=== PATIENT | female | born 1970 | race Caucasian/White ===

== ENCOUNTER 2017-05-20 09:15 | Day surgery (SDC) | payer BC ==
[~2017-05-20] VITALS: Ht 149.9 cm; Wt 50.8 kg
[~2017-05-20 09:15] MED LIST: LEVSIN0.125 MG PO; NORCO 5-325 TA1 EACH PO; PROTONIX40 M1 PO; TRAZODONE HCL50 MG PO; XANAX 0.25 MG0.25 MG PO; ZANTAC 150MG T150 M1 PO; ZOLOFT50 MG PO
[2017-05-20 09:38] VITALS: BP 131/83
[2017-05-20 09:45] LABS: HEMATOCRIT 32.8 % (37.0-47.0); HEMOGLOBIN 10.7 gm/dL (12.0-15.0); MCH 25.7 pg (26.0-34.0); MCHC 32.6 g/dL (28.0-37.0); MCV 78.9 fL (80.0-100.0); MPV 8.2 fl. (7.2-11.1); RBC 4.15 mil/uL (4.20-5.00); RDW-CV 16.4 % (10.5-14.5)
[2017-05-20 09:57] LABS: CALCIUM 8.4 mg/dL (8.5-10.1); CREATININE 0.8 mg/dL (0.6-1.3); POTASSIUM 3.7 mmol/L (3.5-5.1)
[2017-05-20 10:02] LABS: ALBUMIN 3.6 g/dL (3.4-5.0); TOTAL BILIRUBIN 0.4 mg/dL (<0.1-1.0); TOTAL PROTEIN 6.8 g/dL (6.4-8.2)
[2017-05-20 15:01] VITALS: BP 131/83
[2017-05-20 15:03] VITALS: BP 131/83
[2017-05-20 20:00] VITALS: BP 148/85
[2017-05-21 00:43] VITALS: BP 138/64
[2017-05-21 05:28] VITALS: BP 144/87
[2017-05-21] MEDS ORDERED: HYDROCODONE-AP1 EAC6 PO (07:37)
[2017-05-21 07:39] VITALS: BP 144/87
[2017-05-21 08:09] VITALS: BP 147/79
[2017-05-21 09:44] VITALS: BP 144/87
--- NOTE | 2017-05-22 13:32 | S ---
[address] [address] SURGICAL PATH RPT PROCEDURE Name: MOSES PADILLA Room: [facility]#: [id number] Admission: 05/20/17 Date of : 72 Discharge: 05/21/17 Report #: [id number] Path Case #: [id number] PATHOLOGY REPORT COLLECTION DATE: 05/20/2017 RECEIVED DATE: 05/20/2017 SUBMITTING PHYS: Dr. Ivan Durant OTHER PHYS: Dr. Ofelia Moore SPECIMEN(S) RECEIVED: A.Gallbladder and contents * * * * * * * * * * * * FINAL DIAGNOSIS: Gallbladder and contents: - Chronic cholecystitis. (KWAME:mgr; 05/22/2017) PATHOLOGIST: Jw Bello M.D. REPORT ELECTRONICALLY SIGNED BY: Jw Bello M.D. DATE/TIME: 05/22/2017 13:31 * * * * * * * * * * * * GROSS PATHOLOGY: Received in formalin labeled "Moses Padilla, gallbladder and contents," is a 7.1 x 2.2 x 2.4 cm, intact gallbladder with dark green, slightly vascular serosal surfaces. Opening the gallbladder reveals a green, velvety mucosa and an average wall thickness of 0.1 cm. Calculi are not present and no masses are noted grossly. Fibreglass Laminator sections from the body and fundus are submitted along with the proximal margin in cassette A1. (TSD; 05/20/2017) CLINICAL HISTORY: Dysphasia, cholecystitis INITIAL CPT CODE(S): A; 89600 Professional services performed by [facility] at [facility], [address] [place] [address], [place] [address]. Technical services performed by [facility] at [address] [place] [address], [facility] [address], [place] [address]. [facility] [place] [address] [place] [address] SURGICAL PATH RPT PROCEDURE Name: MOSES PADILLA [id number] Admission: 05/20/17 Date of : 72 Discharge: 05/21/17 Report #: [id number] Path Case #: [id number] [address] PHONE: [phone] DIRECTOR: Ganga Diaz M.D. * * * END OF REPORT * * *
--- NOTE | 2017-05-31 12:15 | OP ---
[address] [address] OPERATIVE REPORT Name: VALERIEMOSES L Room: [facility]#: [id number] Admission: 05/20/17 Attend Phys: Ivan Durant DO Discharge: 05/21/17 Date of : 72 Report #: [id number] THIS REPORT FOR: //name// CC: Ivan Moore DICTATED BY: Sonal Sheridan DO DATE OF SERVICE: 05/20/2017 PREOPERATIVE DIAGNOSES: Cholelithiasis and gastroesophageal reflux. POSTOPERATIVE DIAGNOSES: Cholelithiasis and gastroesophageal reflux. SURGEON: Sonal Sheridan DO PGY5. SUPERVISING SURGEON: Ivan Durant DO. COMMERCIAL ACCOUNT EXECUTIVE: Abe Alegria, PGY1. PROCEDURE: Laparoscopic cholecystectomy and aspiration of fluid from lap band. ANESTHESIA: General endotracheal. ESTIMATED BLOOD LOSS: 10 mL. SPECIMENS: Gallbladder. COMPLICATIONS: None. PATIENT CONDITION: Stable. DISPOSITION: To PACU. OPERATIVE DETAILS: After obtaining proper informed consent, the patient was brought to the operating room and laid supine on the operating table. She was given preoperative antibiotics and sedated and intubated under the benefit of general anesthesia. Abdomen was then prepped and draped in the usual sterile fashion, and timeout was performed. Lap band port was accessed with Jhaveri needle and 6.5 mL of fluid was aspirated from lap band. Infraumbilical incision was made, and dissection of subcutaneous tissue was carried out to the level of the fascia. A nicking incision was made in the fascia, and this was grasped with two Macario clamps and elevated. Fascial incision was extended slightly inferiorly and superiorly, and peritoneum was then entered bluntly with a hemostat. Finger was placed in abdomen, and peritoneum was swept and found to be free of adhesions. 0 Vicryl xeyymb-oq-anexo [place] [address] OPERATIVE REPORT Name: MOSES PADILLA [id number] Admission: 05/20/17 Attend Phys: Ivan Durant DO Discharge: 05/21/17 Date of : 72 Report #: [id number] superiorly and inferiorly in the fascia, and Dacia trocar was placed in the abdomen. Abdomen was then insufflated. There were some upper midline omental adhesions. A 5 mm trocar was placed in the far right lateral abdomen under direct visualization, and these adhesions were taken down with the use of cautery. Once these were clear, we turned our attention to the right upper quadrant. A 5 mm trocar was placed in the subxiphoid position avoiding the lap band port. An additional 5 mm trocar was placed in the right upper quadrant under direct visualization. Gallbladder was then grasped and elevated cephalad over the liver. Carmina pouch was grasped and peritoneum over Carmina pouch was incised with the use of cautery. We were able to identify the common bile duct, and this was well away from our dissection plane. [place] dissector was used to carefully dissect free the cystic artery and cystic duct. 2 clips were placed proximally and 1 distally on the cystic duct and 1 proximal and 1 distal on the cystic artery. These were then ligated with the use of endoscopic scissors. Gallbladder was then dissected free from the liver bed with the use of cautery and was placed in an EndoCatch bag. Gallbladder fossa and clips were again inspected, and hemostasis was assured with cautery. Abdomen was then desufflated, and trocars were removed under direct visualization without any evidence of bleeding. Gallbladder was brought out through the infraumbilical incision and sent to pathology for further evaluation. Additional 2 [id number] 0 Vicryl sutures were placed in the fascia of the infraumbilical incision with good approximation. Local infiltration of 0.5% Marcaine was injected in the fascia as well as around all incisions, totalling 30 mL. Skin of all incisions were closed with 4-0 Monocryl, followed by Mastisol, Steri-Strips, sterile Tegaderm dressing and gauze pressure dressing. All counts were correct at the end of the case. Drapes were removed, and the patient was awoken and extubated and brought to PACU in good condition for further recovery. Dr. Ivan Durant was present and scrubbed for the entirety of the procedure. <ELECTRONICALLY SIGNED> By: Ivan Durant DO 05/31/17 1215 [id number] Durant DO /nt
== END 2017-05-21 09:38 | disposition home or self-care (01) ==
LOC: M.SUR 09:15 → M.ORTHSURG 09:15 → M.SUR 09:39 → M.ORTHSURG 17:09 → M.TBA-ER 17:09 → M.SUR 17:09 → M.TBA-ER 17:43 → M.ORTHSURG 17:43 → M.SUR 05-21 09:38
PROVIDERS: Surgery
DX: K80.10 Calculus of gallbladder with chronic cholecystitis without obstruction (principal); K21.9 Gastro-esophageal reflux disease without esophagitis; Z88.0 Allergy status to penicillin

== ENCOUNTER 2017-06-06 21:27 | Emergency (ER) | payer BC ==
[~2017-06-06] VITALS: Ht 149.9 cm; Wt 53.1 kg
[~2017-06-06 21:27] MED LIST changes: +HYDROCODONE-AP1 EAC6 PO
[2017-06-06 21:42] LABS: URINE BILIRUBIN NEGATIVE (Negative); URINE BLOOD NEGATIVE (Negative); URINE CLARITY CLEAR; URINE COLOR YELLOW; URINE GLUCOSE-RANDOM NEGATIVE (Negative); URINE KETONES NEGATIVE (Negative); URINE LEUKOCYTES-REFLEX NEGATIVE (Negative); URINE NITRITE-REFLEX NEGATIVE (Negative); URINE PROTEIN NEGATIVE (Negative); URINE SPECIFIC GRAVITY >= 1.030 (1.005-1.030); URINE UROBILINOGEN 0.2 E.U./dl (0.2-1.0)
[2017-06-06 21:45] LABS: ABSOLUTE BASOPHILS 0.1 thou/uL (0.0-0.2); ABSOLUTE EOSINOPHILS 0.4 thou/uL (0.0-0.7); ABSOLUTE LYMPHOCYTES 2.7 thou/uL (0.8-5.3); ABSOLUTE MONOCYTES 0.8 thou/uL (0.0-1.2); ABSOLUTE NEUTROPHILS 4.5 thou/uL (1.6-8.1); BASOPHILS 1.2 %; EOSINOPHILS 4.4 %; HEMATOCRIT 30.8 % (37.0-47.0); HEMOGLOBIN 10.1 gm/dL (12.0-15.0); LYMPHOCYTES 32.2 %; MCH 25.7 pg (26.0-34.0); MCHC 32.9 g/dL (28.0-37.0); MCV 78.1 fL (80.0-100.0); MONOCYTES 9.3 %; MPV 8.1 fl. (7.2-11.1); NUCLEATED RBCS 0 /100WBC; PLATELET COUNT* 373 thou/uL (150-400); POLYS 52.9 %; RBC 3.94 mil/uL (4.20-5.00); RDW-CV 16.1 % (10.5-14.5); WBC 8.5 thou/uL (4.0-11.0)
[2017-06-06 21:51] LABS: CALCIUM 8.3 mg/dL (8.5-10.1); CREATININE 0.8 mg/dL (0.6-1.3); POTASSIUM 3.8 mmol/L (3.5-5.1)
[2017-06-06 21:56] LABS: ALBUMIN 3.5 g/dL (3.4-5.0); TOTAL BILIRUBIN 0.1 mg/dL (<0.1-1.0); TOTAL PROTEIN 7.1 g/dL (6.4-8.2)
[2017-06-06 23:36] VITALS: BP 117/72
== END 2017-06-06 23:38 | disposition home or self-care (01) ==
LOC: M.ERS 21:27
PROVIDERS: Physician Assistant
DX: R10.13 Epigastric pain (principal); F10.99 Alcohol use, unspecified with unspecified alcohol-induced disorder; Z90.49 Acquired absence of other specified parts of digestive tract; Z88.0 Allergy status to penicillin